=== PATIENT | male | born 1990 | race Two or more races ===

== ENCOUNTER 2016-03-20 11:41 | Emergency (ER) | payer MEDICAID ==
[~2016-03-20] VITALS: Ht 180.3 cm; Wt 59.0 kg
[2016-03-20 11:58] VITALS: BP 127/91
== END 2016-03-20 12:29 | disposition home or self-care (01) ==
LOC: ER 11:42
DX: J02.9 Acute pharyngitis, unspecified (principal); Z86.14 Personal history of Methicillin resistant Staphylococcus aureus infection

== ENCOUNTER 2016-06-21 10:45 | Emergency (ER) | payer MEDICAID ==
[~2016-06-21] VITALS: Ht 180.3 cm; Wt 59.0 kg
[2016-06-21 10:50] VITALS: BP 127/83
== END 2016-06-21 12:42 | disposition home or self-care (01) ==
LOC: ER 10:45
DX: J20.9 Acute bronchitis, unspecified (principal); J45.901 Unspecified asthma with (acute) exacerbation

== ENCOUNTER 2017-01-23 14:21 | Emergency (ER) | payer MEDICAID ==
[~2017-01-23] VITALS: Ht 177.8 cm; Wt 59.0 kg
[2017-01-23 15:02] VITALS: BP 126/87
== END 2017-01-23 15:08 | disposition home or self-care (01) ==
LOC: ER 14:21
DX: J45.901 Unspecified asthma with (acute) exacerbation (principal); J20.9 Acute bronchitis, unspecified

== ENCOUNTER 2017-01-26 12:12 | Emergency (ER) | payer MEDICAID ==
[~2017-01-26] VITALS: Ht 177.8 cm; Wt 57.2 kg
[2017-01-26 14:41] VITALS: BP 133/94
== END 2017-01-26 15:55 | disposition home or self-care (01) ==
LOC: ER 12:12
DX: S20.212A Contusion of left front wall of thorax, initial encounter (principal); S00.33XA Contusion of nose, initial encounter; S50.811A Abrasion of right forearm, initial encounter; J45.909 Unspecified asthma, uncomplicated; V43.52XA Car driver injured in collision with other type car in traffic accident, initial encounter; Y93.89 Activity, other specified; Y92.89 Other specified places as the place of occurrence of the external cause; Y99.8 Other external cause status
CPT/HCPCS: 71020; 93005

== ENCOUNTER 2017-07-26 14:47 | Emergency (ER) | payer MEDICAID ==
[~2017-07-26] VITALS: Ht 177.8 cm; Wt 59.0 kg
[2017-07-26] MEDS ORDERED: IPRATROPIUM BROM 0.5 MG/2.5ML INH SOL NEB ONE (15:45)
[2017-07-26] MEDS ORDERED: ALBUTEROL SULF 2.5 MG/0.5ML(0.5%) NEB SOLN NEB ONE (15:45)
[2017-07-26 15:47] LABS: Basophils # (auto) 0.1 uL; Basophils % (auto) 0.7 % (0.0-2.0); Eosinophils # (auto) 0.6 uL; Eosinophils % (auto) 6.6 % (0.0-7.0); Hematocrit 49.5 % (41.0-53.0); Mean Corpuscular Hemoglobin 31.5 pg (28.0-32.0); Mean Corpuscular Hgb Conc. 34.3 g/dL (32.0-36.0); Mean Corpuscular Volume 91.8 fL (80.0-100.0); Monocytes # (auto) 0.8 uL; Monocytes % (auto) 9.5 % (0.0-12.0); Neutrophils # (auto) 6.2 uL; Neutrophils % (auto) 72.2 % (37.0-80.0); Nucleated Red Blood Cells % 0.6 %; Platelet Count (auto) 196 10^3/uL (140-450); Red Blood Cells 5.39 10^6/uL (4.5-5.90); Red Cell Distribution Width 12.8 % (11.8-14.3); White Blood Cell 8.6 10^3/uL (4.4-10.8)
[2017-07-26 15:58] VITALS: BP 121/81
[2017-07-26 16:09] LABS: Albumin 4.7 g/dL (3.4-5.0); BUN/Creatinine Ratio 13.5; Calcium 9.7 mg/dL (8.5-10.1); Potassium 3.7 mmol/L (3.5-5.1)
[2017-07-26 16:11] LABS: Bilirubin, Total 3.1 mg/dL (0.2-1.0); Total Protein 8.4 g/dL (6.4-8.2)
== END 2017-07-26 16:57 | disposition home or self-care (01) ==
LOC: ER 14:50
DX: J20.9 Acute bronchitis, unspecified (principal)
CPT/HCPCS: 36415; 71046; 80053; 85025; 94640

== ENCOUNTER 2017-12-14 14:56 | Emergency (ER) | payer MEDICAID ==
[~2017-12-14] VITALS: Ht 180.3 cm; Wt 56.7 kg
[2017-12-14 15:06] VITALS: BP 108/74
[2017-12-14] MEDS ORDERED: IPRATROPIUM BROM 0.5 MG/2.5ML INH SOL NEB ONE (15:15)
[2017-12-14] MEDS ORDERED: ALBUTEROL SULF 2.5 MG/0.5ML(0.5%) NEB SOLN NEB ONE (15:15)
[2017-12-14] MEDS ORDERED: methylPREDNISolone SOD SUCC 125 MG/2 ML VL IM ONE (15:45)
== END 2017-12-14 16:36 | disposition home or self-care (01) ==
LOC: ER 14:56
DX: J20.9 Acute bronchitis, unspecified (principal); J45.909 Unspecified asthma, uncomplicated; F12.10 Cannabis abuse, uncomplicated
CPT/HCPCS: 94640; 96372; 99283; J2930; J7611; J7644

== ENCOUNTER 2017-12-26 12:29 | Emergency (ER) | payer MEDICAID ==
[~2017-12-26] VITALS: Ht 180.3 cm; Wt 59.0 kg
[2017-12-26 13:30] VITALS: BP 124/78
[2017-12-26] MEDS ORDERED: IPRATROPIUM BROM 0.5 MG/2.5ML INH SOL NEB ONE (14:15)
[2017-12-26] MEDS ORDERED: ALBUTEROL SULF 2.5 MG/0.5ML(0.5%) NEB SOLN NEB ONE (14:15)
== END 2017-12-26 15:28 | disposition home or self-care (01) ==
LOC: ER 12:29
DX: J45.901 Unspecified asthma with (acute) exacerbation (principal); F12.10 Cannabis abuse, uncomplicated
CPT/HCPCS: 71046; 94640; 99284; J7611; J7644

== ENCOUNTER 2018-04-16 06:25 | Emergency (ER) | payer MEDICAID ==
[~2018-04-16] VITALS: Ht 180.3 cm; Wt 59.0 kg
[2018-04-16] MEDS ORDERED: IPRATROPIUM BROM 0.5 MG/2.5ML INH SOL NEB ONE (07:00)
[2018-04-16] MEDS ORDERED: ALBUTEROL SULF 2.5 MG/0.5ML(0.5%) NEB SOLN NEB ONE (07:00)
[2018-04-16 09:00] VITALS: BP 116/72
== END 2018-04-16 08:56 | disposition home or self-care (01) ==
LOC: ER 06:25
DX: J45.909 Unspecified asthma, uncomplicated (principal); Z76.0 Encounter for issue of repeat prescription; F12.10 Cannabis abuse, uncomplicated
CPT/HCPCS: 94640; 99283; J7611; J7644

== ENCOUNTER 2018-06-09 05:53 | Emergency (ER) | payer MEDICAID ==
[~2018-06-09] VITALS: Ht 177.8 cm; Wt 61.2 kg
[2018-06-09] MEDS ORDERED: ALBUTEROL SULF 2.5 MG/0.5ML(0.5%) NEB SOLN NEB ONE (07:00)
[2018-06-09] MEDS ORDERED: IPRATROPIUM BROM 0.5 MG/2.5ML INH SOL NEB ONE (07:00)
[2018-06-09 07:20] VITALS: BP 118/72
== END 2018-06-09 07:40 | disposition home or self-care (01) ==
LOC: ER 05:53
DX: J45.909 Unspecified asthma, uncomplicated (principal); Z76.0 Encounter for issue of repeat prescription
CPT/HCPCS: 94640; 99283; J7611; J7644

== ENCOUNTER 2018-07-21 06:32 | Emergency (ER) | payer MEDICAID ==
[~2018-07-21] VITALS: Ht 180.3 cm; Wt 59.0 kg
[2018-07-21 06:42] VITALS: BP 99/65
[2018-07-21] MEDS ORDERED: IPRATROPIUM BROM 0.5 MG/2.5ML INH SOL NEB ONE (07:00)
[2018-07-21] MEDS ORDERED: ALBUTEROL SULF 2.5 MG/0.5ML(0.5%) NEB SOLN NEB ONE (07:00)
[2018-07-21] MEDS ORDERED: methylPREDNISolone SOD SUCC 125 MG/2 ML VL IM ONE (07:15)
== END 2018-07-21 07:21 | disposition home or self-care (01) ==
LOC: ER 06:32
DX: J45.901 Unspecified asthma with (acute) exacerbation (principal)
CPT/HCPCS: 94640; 96372; 99283; J2930; J7611; J7644

== ENCOUNTER 2018-10-29 11:03 | Emergency (ER) | payer MEDICAID ==
[~2018-10-29] VITALS: Ht 180.3 cm; Wt 59.0 kg
[2018-10-29] MEDS ORDERED: ALBUTEROL SULF 2.5 MG/0.5ML(0.5%) NEB SOLN HHN ONE (11:30)
[2018-10-29] MEDS ORDERED: methylPREDNISolone SOD SUCC 125 MG/2 ML VL IV ONE (11:30)
[2018-10-29] MEDS ORDERED: IPRATROPIUM BROM 0.5 MG/2.5ML INH SOL HHN ONE (11:30)
[2018-10-29 12:09] LABS: Basophils # (auto) 0 uL; Basophils % (auto) 0.5 % (0.0-2.0); Eosinophils # (auto) 0.7 uL; Eosinophils % (auto) 11.4 % (0.0-7.0); Hemoglobin 15.9 g/dL (13.5-17.5); Lymphocytes # (auto) 1.4 uL; Lymphocytes % (auto) 23.6 % (10.0-50.0); Mean Corpuscular Hgb Conc. 34.5 g/dL (32.0-36.0); Mean Corpuscular Volume 92.5 fL (80.0-100.0); Monocytes # (auto) 0.4 uL; Monocytes % (auto) 7.7 % (0.0-12.0); Neutrophils # (auto) 3.3 uL; Neutrophils % (auto) 56.8 % (37.0-80.0); Nucleated Red Blood Cells % 0.1 %; Platelet Count (auto) 210 10^3/uL (140-450); Red Blood Cells 4.97 10^6/uL (4.5-5.90); Red Cell Distribution Width 12.6 % (11.8-14.3); White Blood Cell 5.8 10^3/uL (4.4-10.8)
[2018-10-29 12:25] LABS: Albumin 4.2 g/dL (3.4-5.0); BUN/Creatinine Ratio 20.2; Calcium 9.4 mg/dL (8.5-10.1)
[2018-10-29 12:28] LABS: Bilirubin, Total 1.1 mg/dL (0.2-1.0); Total Protein 7.4 g/dL (6.4-8.2)
[2018-10-29 13:17] VITALS: BP 118/71
== END 2018-10-29 13:09 | disposition home or self-care (01) ==
LOC: ER 11:06
DX: J45.901 Unspecified asthma with (acute) exacerbation (principal); F12.10 Cannabis abuse, uncomplicated
CPT/HCPCS: 36415; 71046; 80053; 85025; 94640; 94761; 96374; 99284; J2930; J7611; J7644; 94644

== ENCOUNTER 2018-11-06 19:15 | Emergency (ER) | payer MEDICAID ==
[~2018-11-06] VITALS: Ht 170.2 cm; Wt 113.4 kg
[2018-11-06] MEDS ORDERED: IPRATROPIUM BROM 0.5 MG/2.5ML INH SOL NEB ONE (20:00)
[2018-11-06] MEDS ORDERED: ALBUTEROL SULF 2.5 MG/0.5ML(0.5%) NEB SOLN NEB ONE (20:00)
[2018-11-06] MEDS ORDERED: methylPREDNISolone SOD SUCC 125 MG/2 ML VL IM ONE (21:30)
[2018-11-06] MEDS ORDERED: EPINEPHrine HCL 1 MG/1 ML AMP SC ONE (21:30)
[2018-11-06] MEDS ORDERED: EPINEPHrine HCL 0.5 ML NEB NEB ONE (22:15)
[2018-11-06] MEDS: MAGNESIUM SULFATE 1GM/100ML 100 ML IV SCH (23:14)
[2018-11-06 23:50] VITALS: BP 117/65
[2018-11-07] MEDS: MAGNESIUM SULFATE 1GM/100ML 100 ML IV SCH
== END 2018-11-07 00:29 | disposition home or self-care (01) ==
LOC: ER 19:15
DX: J45.901 Unspecified asthma with (acute) exacerbation (principal); F12.10 Cannabis abuse, uncomplicated
CPT/HCPCS: 71046; 94640; 96372; 99284; J0171; J2930; J3475; J7030; J7611; J7644

== ENCOUNTER 2019-02-06 06:17 | Emergency (ER) | payer MEDICAID ==
[~2019-02-06] VITALS: Ht 180.3 cm; Wt 59.0 kg
[2019-02-06 06:46] VITALS: BP 117/72
[2019-02-06] MEDS ORDERED: ALBUTEROL SULF 2.5 MG/0.5ML(0.5%) NEB SOLN NEB ONE ×2 (07:00→07:30)
[2019-02-06] MEDS ORDERED: IPRATROPIUM BROM 0.5 MG/2.5ML INH SOL NEB ONE ×2 (07:00→07:30)
== END 2019-02-06 08:11 | disposition home or self-care (01) ==
LOC: ER 06:17
DX: J45.901 Unspecified asthma with (acute) exacerbation (principal); F12.10 Cannabis abuse, uncomplicated
CPT/HCPCS: 94640; 99284; J7611; J7644

== ENCOUNTER 2019-03-10 19:48 | Emergency (ER) | payer MEDICAID ==
[~2019-03-10] VITALS: Ht 180.3 cm; Wt 61.3 kg
[2019-03-10] MEDS ORDERED: ALBUTEROL SULF 2.5 MG/0.5ML(0.5%) NEB SOLN NEB STA (19:55)
[2019-03-10 20:00] VITALS: BP 128/86
[2019-03-10] MEDS ORDERED: IPRATROPIUM BROM 0.5 MG/2.5ML INH SOL NEB ONE (20:00)
== END 2019-03-10 20:39 | disposition home or self-care (01) ==
LOC: ER 19:51
DX: J45.901 Unspecified asthma with (acute) exacerbation (principal); J01.00 Acute maxillary sinusitis, unspecified
CPT/HCPCS: 94640; 99283; J7611; J7644

== ENCOUNTER 2020-01-24 04:50 | Inpatient (IN) | payer MEDICAID ==
[~2020-01-24] VITALS: Ht 180.3 cm; Wt 61.2 kg
[~2020-01-24 04:50] MED LIST: ALBU108A5 IN; FLUT250M2 INH; MONT10TA23 PO; PRED20TA2 PO
[2020-01-24] MEDS ORDERED: IPRATROPIUM BROM 0.5 MG/2.5ML INH SOL NEB ONE ×2 (05:45→10:00)
[2020-01-24] MEDS ORDERED: ALBUTEROL SULF 2.5 MG/0.5ML(0.5%) NEB SOLN NEB ONE ×3 (05:45→15:15)
[2020-01-24] MEDS ORDERED: methylPREDNISolone SOD SUCC 125 MG/2 ML VL IV ONE (09:45)
[2020-01-24] MEDS ORDERED: IPRATROPIUM BROM 0.5 MG/2.5ML INH SOL ONE (10:00)
[2020-01-24] MEDS ORDERED: ALBUTEROL SULF 2.5 MG/0.5ML(0.5%) NEB SOLN ONE (10:00)
[2020-01-24 11:29] LABS: Basophils # (auto) 0.1 10 ^3/uL (0-0.2); Basophils % (auto) 0.5 % (0.0-2.0); Eosinophils # (auto) 0.6 10 ^3/uL (0-0.8); Eosinophils % (auto) 4.6 % (0.0-7.0); Hematocrit 45.6 % (41.0-53.0); Hemoglobin 15.7 g/dL (13.5-17.5); Lymphocytes # (auto) 0.6 10 ^3/uL (0.4-5.4); Lymphocytes % (auto) 4.8 % (10.0-50.0); Mean Corpuscular Hgb Conc. 34.5 g/dL (32.0-36.0); Mean Corpuscular Volume 92.7 fL (80.0-100.0); Monocytes # (auto) 0.3 10 ^3/uL (0-1.3); Monocytes % (auto) 2.4 % (0.0-12.0); Neutrophils # (auto) 10.8 10 ^3/uL (1.6-8.6); Neutrophils % (auto) 87.7 % (37.0-80.0); Platelet Count (auto) 205 10^3/uL (140-450); Red Blood Cells 4.92 10^6/uL (4.5-5.90); Red Cell Distribution Width 12.7 % (11.8-14.3); White Blood Cell 12.3 10^3/uL (4.4-10.8)
[2020-01-24 11:53] LABS: Alanine Aminotransferase 36 U/L (16-61); Albumin 4.6 g/dL (3.4-5.0); Anion Gap 7 (5-15); Aspartate Aminotransferase 15 U/L (15-37); BUN/Creatinine Ratio 20.4; Blood Urea Nitrogen 20 mg/dL (7-18); Calcium 9.1 mg/dL (8.5-10.1); Carbon Dioxide 26 mmol/L (21-32); Chloride 106 mmol/L (98-107); GFR African American 115 mL/min; GFR Non-African American 95 mL/min; Glucose 157 mg/dL (74-106); Magnesium 2.4 mg/dL (1.6-2.6); Potassium 3.2 mmol/L (3.5-5.1); Sodium 139 mmol/L (136-145)
[2020-01-24 11:59] LABS: Alkaline Phosphatase 81 U/L (45-117); Bilirubin, Total 1.4 mg/dL (0.2-1.0); Total Protein 7.6 g/dL (6.4-8.2)
[2020-01-24] MEDS ORDERED: POTASSIUM CHL 20 Meq TABLET PO ONE (12:45)
[2020-01-24] MEDS ORDERED: NITROGLYCERIN 0.4 MG SL TAB SL PRN (14:15)
[2020-01-24] MEDS ORDERED: ACETAMINOPHEN 500 MG TAB PO PRN (14:15)
[2020-01-24] MEDS ORDERED: MORPHINE SULF INJ 2 MG/ML SYRINGE 1ML IV PRN (14:15)
[2020-01-24] MEDS ORDERED: PROMETHAZINE HCL 25 MG/ML 1ML IV PRN (14:15)
[2020-01-24] MEDS ORDERED: DOXYCYCLINE 100MG/250ML 250 ML IV SCH (15:00)
[2020-01-24 15:34] VITALS: BP 112/70
[2020-01-24] MEDS ORDERED: methylPREDNISolone SOD SUCC 40 MG/ML VL IV SCH (18:00)
[2020-01-24] MEDS ORDERED: ALBUTEROL SULF HFA 90MCG INH 200DOSE IN SCH (22:00)
[2020-01-24] MEDS ORDERED: FAMOTIDINE 20 MG TAB PO SCH (22:00)
[2020-01-24] MEDS ORDERED: BUDESONIDE (INHALATION) 180 MCG IH IN SCH (22:00)
[2020-01-25] MEDS ORDERED: ASCORBIC ACID 1,000 MG TAB PO SCH (10:00)
[2020-01-25] MEDS ORDERED: CHOLECALCIFEROL (VITD3) 2,000 UNIT CAP PO SCH (10:00)
[2020-01-25] MEDS ORDERED: ZINC SULFATE 220mg CAP or TAB PO SCH (10:00)
[2020-01-25] MEDS ORDERED: ENOXAPARIN SOD 40 MG/0.4 ML SYRINGE SC SCH (10:00)
== END 2020-01-24 21:14 | disposition left against medical advice (07) | DRG 133 ==
LOC: ER 04:50 → TELE 04:51
PROVIDERS: ADMIT Hospitalist; ATTEND Hospitalist
DX: J96.01 Acute respiratory failure with hypoxia (principal); Z20.828 Contact with and (suspected) exposure to other viral communicable diseases; F12.90 Cannabis use, unspecified, uncomplicated; Z80.0 Family history of malignant neoplasm of digestive organs; Z82.49 Family history of ischemic heart disease and other diseases of the circulatory system; Z83.3 Family history of diabetes mellitus; E87.6 Hypokalemia; Z90.89 Acquired absence of other organs; J45.901 Unspecified asthma with (acute) exacerbation
CPT/HCPCS: 36415; 71046; 80053; 83735; 84484; 85025; 87426; 94640; 96365; 96375; G0378; J3490